=== PATIENT | male | born 1995 | race African-American/Black ===

== ENCOUNTER 2016-11-17 15:56 | Emergency (ER) | payer OTHER ==
[~2016-11-17 15:56] MED LIST: AMOXICILLIN875 MG PO; MOTRIN600 M1 PO
[2016-11-17 16:41] LABS: URINE SOURCE CLEAN CATCH
[2016-11-17 16:42] LABS: URINE APPEARANCE CLEAR; URINE BILIRUBIN NEG (NEG); URINE BLOOD NEG (NEG); URINE COLOR YELLOW; URINE GLUCOSE NEG (NORM); URINE KETONE NEG (NEG); URINE LEUKOCYTE ESTERASE 2+ (NEG); URINE NITRATE NEG (NEG); URINE PH 7.5 (5-8); URINE PROTEIN NEG (NEG)
[2016-11-17 16:44] LABS: MICRO INDICATED? YES
[2016-11-17 16:47] LABS: URINE RBC 0-2 /[HPF] (0-2); URINE WBC 25-50 /[HPF] (0-5)
[2016-11-17 16:48] LABS: CULTURE INDICATED? YES; URINE BACTERIA 1+ (NEG)
[2016-11-21 23:48] LABS: CHLAMYDIA TRACH Detected (Not Detected); N GONOR Not Detected (Not Detected)
== END 2016-11-17 17:05 | disposition home or self-care (01) ==
LOC: SED 15:56
PROVIDERS: Nurse Practitioner Family
DX: N39.0 Urinary tract infection, site not specified (principal); A64 Unspecified sexually transmitted disease; Z88.0 Allergy status to penicillin
CPT/HCPCS: 81003; 87086; 87491; 87591; 96372; 99283; J0696